=== PATIENT | male | born 1990 | race Caucasian/White ===

== ENCOUNTER 2019-04-15 23:25 | Emergency (ER) | payer OTHER ==
[~2019-04-15] VITALS: Ht 175.3 cm; Wt 77.1 kg
[2019-04-16] MEDS ORDERED: IBU800 MG PO (00:46)
== END 2019-04-16 00:48 | disposition home or self-care (01) ==
LOC: ER 23:25
DX: S20.211A Contusion of right front wall of thorax, initial encounter (principal); W01.198A Fall on same level from slipping, tripping and stumbling with subsequent striking against other object, initial encounter; Y93.89 Activity, other specified; Y92.098 Other place in other non-institutional residence as the place of occurrence of the external cause; Y99.8 Other external cause status

== ENCOUNTER 2020-06-01 07:45 | Day surgery (SDC) | payer OTHER ==
[~2020-06-01 07:45] MED LIST: IBU800 MG PO
== END 2020-06-01 20:30 | disposition home or self-care (01) ==
LOC: CIR.AMB 07:45
PROVIDERS: ATTEND Orthopaedic Surgery Hand Surgery
DX: S62.031K Displaced fracture of proximal third of navicular [scaphoid] bone of right wrist, subsequent encounter for fracture with nonunion (principal); Z20.822 Contact with and (suspected) exposure to COVID-19